=== PATIENT | male | born 1955 | race Caucasian/White ===

== ENCOUNTER 2021-01-02 06:02 | Outpatient (REF) | payer OTHER, SELFPAY ==
[2021-01-02 11:18] LABS: MANUAL DIFF FLAG NO
[2021-01-02 11:26] LABS: Basophils Absolute Auto 0.1 X10*3/uL (0.0-0.2); Basophils Percent Auto 0.5 % (0-2); Eosinophils Absolute Auto 0.2 X10*3/uL (0.0-0.4); Eosinophils Percent Auto 2.3 % (0-4); Hemoglobin 13.5 g/dl (14.0-18.0); Imm Gran Abs Auto 0.02 X10*3/uL (0.00-0.03); Imm Gran Pct Auto 0.2 % (0.0-0.4); Lymphocytes Absolute Auto 4.7 X10*3/uL (1.2-4.9); Lymphocytes Percent Auto 45.8 % (20-40); Mean Corpuscular HGB Conc 32.9 g/dl (31.0-36.0); Mean Corpuscular Volume 94.3 fL (80-98); Mean Platelet Volume 10.9 fL (9.4-12.4); Monocytes Absolute Auto 0.6 X10*3/uL (0.1-1.2); Monocytes Percent Auto 5.5 % (2-11); Neutrophils Absolute Auto 4.7 X10*3/uL (2.0-8.3); Neutrophils Percent Auto 45.7 % (45-73); Platelet Count 387 X10*3/uL (160-400); Red Blood Count 4.35 X10*6/uL (4.60-5.80); Red Cell Distribution Width 14.4 % (11.0-16.0); White Blood Count 10.2 X10*3/uL (4.8-10.8)
[2021-01-02 11:43] LABS: Alanine Aminotransferase 12 U/L (0-40); Alkaline Phosphatase 71 U/L (39-117); Anion Gap 13 (12-20); Aspartate Amino Transferase 21 U/L (5-37); Bilirubin Total 0.7 mg/dL (0.0-1.0); Blood Urea Nitrogen 15 mg/dL (9-16); Calcium 9.1 mg/dL (8.4-10.2); Carbon Dioxide 26 mmol/L (22-29); Chloride 107 mmol/L (96-108); Cholesterol 205 mg/dL; Estimated Glomerular Filt Rate > 60; Glucose Fasting 89 mg/dL (60-99); HDL Cholesterol 54 mg/dL; LDL Cholesterol Calculated 140 mg/dl; Potassium 4.2 mmol/L (3.3-5.1); Sodium 142 mmol/L (135-145); Total Protein 6.4 g/dL (6.5-8.0); Triglycerides 58 mg/dL
== END 2021-01-02 06:03 | disposition home or self-care (01) ==
LOC: HO.HMGCLDS 06:02
PROVIDERS: PCP Internal Medicine; Visit Provider Internal Medicine
DX: Z00.01 Encounter for general adult medical examination with abnormal findings (principal); D22.9 Melanocytic nevi, unspecified; Z71.6 Tobacco abuse counseling; Z12.11 Encounter for screening for malignant neoplasm of colon
CPT/HCPCS: 36415; 80053; 80061; 85025

== ENCOUNTER 2021-01-24 15:16 | Outpatient (REF) | payer OTHER, SELFPAY ==
--- NOTE | ~2021-01-24 | CT_ITS ---
EXAMINATION: CT CHEST SCREENING CLINICAL INFORMATION: Nicotine dependence. COMPARISON: None. TECHNIQUE: Multidetector volumetric CT imaging of the chest is performed without contrast using low dose technique. Additional 2D coronal and sagittal reformatted images and axial 3D maximum intensity projection (MIP) images are generated on the CT workstation. This CT examination was performed using dose optimization techniques as appropriate, variously including the following: *Automated exposure control *Adjustment of mA and/or kV according to patient size (this includes techniques or standardized protocols for targeted exams where dose is matched to indication/reason for exam; i.e. extremities or head) *Use of iterative reconstruction technique DLP: 48 mGy-cm. FINDINGS: LUNGS: The lungs are hyperinflated with no acute pneumonic process. There is 2 mm punctate calcifications left upper lobe image 170/6. No additional nodules seen. There is bilateral lower lobe, lingula and right middle lobe band-like atelectasis. No mass or ground-glass density seen. MEDIASTINUM: The thyroid lobes are symmetrical and normal. The central trachea and the bronchi are widely patent. There are atherosclerotic changes of the thoracic aorta. No aneurysmal dilatation seen. There is no pericardial effusion. No abnormal-sized mediastinal or hilar lymph nodes noted. PLEURA: There is no pleural effusion, thickening or calcification. AXILLA: No lymphadenopathy. UPPER ABDOMEN: Visualized liver and pancreas appear unremarkable. OSSEOUS STRUCTURES: No lytic or sclerotic process seen. There is moderate ventral spondylosis throughout the dorsal spine. There is loss of T7 vertebral height with endplate Schmorl's node, likely chronic. CT/CT lung screening IMPRESSION: Hyperinflated lungs with 2 mm calcification left lower lobe. Bilateral lower lobe, right middle lobe and lingular atelectasis. Moderate spondylosis throughout mid dorsal spine. Compression fracture deformity T7 vertebra, likely old. ASSESSMENT: Lung-RADS category 2: Benign. RECOMMENDATION: Low dose annual CT chest.
== END 2021-01-24 15:17 | disposition home or self-care (01) ==
LOC: HO.CT 15:16
PROVIDERS: PCP Internal Medicine; Visit Provider Physician Assistant Medical
DX: Z12.2 Encounter for screening for malignant neoplasm of respiratory organs (principal); F17.210 Nicotine dependence, cigarettes, uncomplicated
CPT/HCPCS: 71271

== ENCOUNTER → 2021-03-27 13:45 | Outpatient (BNVA) | payer OTHER, SELFPAY | PROVIDERS: PCP Internal Medicine; Visit Provider Nurse Practitioner ==

== ENCOUNTER 2021-05-20 07:38 | Day surgery (SDC) | payer OTHER, SELFPAY ==
--- NOTE | 2021-05-19 13:22 | HO.ANESPROP2 ---
HPI - Anesthesia Eval Consult details Narrative: 65yo M for Colonoscopy PMFSH Active Problems Active Problems: All Active Problems (Updated 05/13/21 @ 15:27 by Keely Lance RN) Change in mole (Acute) Screening for AAA (abdominal aortic aneurysm) (Acute) Colon cancer screening (Acute) Personal history of nicotine dependence (Acute) Past Medical History Medical History COVID-19 vaccine series completed History of COVID-19 History of melanoma in situ Kidney stones Personal history of nicotine dependence Smoker Family History Family History (Updated 03/27/21 @ 13:58 by ALENA Yusuf) Mother Lung cancer Brother Cancer Father Cerebral hemorrhage Surgical History Surgical History History of radical excision of skin lesion Hx of colonoscopy Hx of nephrolithotomy with removal of calculi Social History Social History Alcohol intake: current Alcohol intake frequency: does not drink Patient Tobacco Use Status: Current everyday Tobacco user Tobacco use type: Cigarette Cigarette Packs Per Day: 1 Cigarettes Per Day: 15 Years Smoked: 52 Smoked in Last 30 Days: Yes Use of substances other than those prescribed or required for medical reasons: Yes Substance Use Frequency: Daily Are you DNR?: No Advance Directives: No Advance Directives Information Provided: Yes 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[employer], 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 Meds Allergies Allergy/AdvReac Type Severity Reaction Status Date / Time No Known Allergies Allergy Verified 05/20/21 08:27 Home Medications Medication Instructions Recorded Confirmed Last Taken Type whovdytdudrl-wzv-snuah acid-vit 1 tab PO BEDTIME 03/27/21 05/13/21 Unknown History K-lycop 400 mcg-20 mcg-370 mcg tablet (Men's 50 Plus Multivitamin) Exam Exam Date and Time: May 19, 2021 1322 Pertinent Lab Results Pertinent Lab Results: Laboratory Tests 01/02/21 01/02/21 06:10 06:10 WBC 10.2 Hgb 13.5 L Hct 41.0 L Plt Count 387 Sodium 142 Potassium 4.2 Chloride 107 Carbon Dioxide 26 BUN 15 Creatinine 0.79 Assessment and Plan Assessment Anesthesia Assessment: Chart Reviewed
[2021-05-20 08:27] VITALS: BP 106/61; PULSE 56; RESP 16; TEMP 36.3; O2SAT 97; BMI 22.0
[2021-05-20] MEDS: Lactated Ringers 1,000 ML 100 ML IVCONT (08:46)
--- NOTE | 2021-05-20 09:04 | MHC.SHP ---
Pre-Procedural Eval Section A Date of Service: 05/20/21 The patient is an INPATIENT: No The History & Physical has been completed within 30 days and I have reviewed it.: No Section B Chief Complaint: screening Details of Present Illness: Colon cancer screening Relevant Family History (Specify if Yes): No Relevant Social History: Tobacco Use Present Medications: see Short Stay Collaborative assessment Medical History: Significant History (History of COVID-19 History of melanoma in situ Personal history of nicotine dependence) History of Previous Operations: Relevant previous surgery/procedure and date(s) (History of radical excision of skin lesion Hx of colonoscopy Hx of nephrolithotomy with removal of calculi) Allergies: Allergies Allergy/AdvReac Type Severity Reaction Status Date / Time No Known Allergies Allergy Verified 05/20/21 08:27 Review of Systems Sugical H&P ROS: Negative: Constitution, Cardiovascular, Respiratory and Gastrointestinal Exam Surgical H&P Exam: Normal: Heart, Normal: Lungs, Normal: Extremities and Normal: Abdomen Plan Diagnosis/Plan: Unchanged I have reviewed the history and physical and performed a pertinent physical examination on my patient. No changes have occurred unless specified.
--- NOTE | 2021-05-20 09:11 | W.PM.OPN ---
Operative Note Operative Note Date of Service: 05/20/21 Narrative: Pre-op diagnosis:?Colon cancer screening Post-op diagnosis:?other (Colon polyps, diverticulosis, hemorrhoids) Procedure:? COLONOSCOPY TILL CECUM WITH BIOPSIES, SNARE POLYPECTOMY, SUBMUCOSAL INJECTION AND HEMOCLIP PLACEMENT Consent: Indications for the procedure and potential complications of bleeding, perforation, reaction to medications and missed diagnosis were discussed with the patient and informed consent was obtained. Instrument: Olympus PCF H 190 L variable stiffness pediatric colonoscope Monitoring: Vital signs and clinical assessment, intermittent blood pressure monitoring, continuous EKG monitoring, Pulse oximetry and Carbon Dioxide monitoring were done throughout the procedure. Colon withdrawl time was 22 minutes. Procedure: The patient was placed in the left lateral decubitis position and pre-procedure medications were administered. After a digital rectal examination of the ano-rectum, the video colonoscope was inserted into the rectum and advanced through the colon to the cecum. The colonoscope was slowly withdrawn in a retrograde panoramic fashion and the colon mucosa was carefully examined including a retroflexed view of the rectum. Findings and interventions are described below. Procedure Difficulty: Without difficulty Findings: Terminal Ileum: Not evaluated Cecum:? A 12-15 mm flat polyp raised with 3 cc of Orise solution and removed with a hot snare. Polypectomy site was closed with a resolution clip. Ascending Colon:? Normal Transverse Colon:? A 10 mm sessile polyp removed with a hot snare Descending Colon:? Moderate diverticulosis Sigmoid Colon:? A 7-8 mm sessile polyp removed with the cold biopsy. Moderate diverticulosis Rectum:? Normal Ano-rectum:? Large internal hemorrhoids Colon preparation:? Good Impression and Post Procedure Diagnosis: Colonoscopy Findings: Three small to medium sized polyps removed Moderate diverticulosis seen in the left colon Large hemorrhoids on retroflexed exam. Plan: Await pathology results Patient has an appointment on 06/02/21 in the GI Clinic with? Hali Mccormick NP. Repeat Colonoscopy interval based on path results - in 3-5 years if polyps are adenomatous and 10 years if polyps are hyperplastic. Above findings were reviewed with the patient and colon polyps and diverticulosis handouts were given in the discharge area Surgeon:?Michelle Lopez MD Anesthesia:?MAC (Antonina Avilez CRNA) Was an Project Systems Engineer used for this Procedure?:?Yes Project Systems Engineer:?Karime Pimentel Estimated blood loss (mL):?0 Pathology:?other ( A. cecal polyp with Orise? B. transverse colon polyp? C. sigmoid polyp) Condition:?stable Disposition:?PACU
[2021-05-20 10:56] VITALS: BP 118/69; PULSE 57; RESP 16; TEMP 36.1; O2SAT 97
[2021-05-20 11:11] VITALS: BP 132/72; PULSE 57; RESP 18; TEMP 36.1; O2SAT 95
== END 2021-05-20 12:06 | disposition home or self-care (01) ==
PROVIDERS: PCP Internal Medicine; Visit Provider Internal Medicine Gastroenterology
PROC: 0DJD8ZZ Inspection of Lower Intestinal Tract, Via Natural or Artificial Opening Endoscopic (ICD-10-PCS; CPT 45378; principal; 2021-05-20 09:20)
DX: Z12.11 Encounter for screening for malignant neoplasm of colon (principal); D12.0 Benign neoplasm of cecum; D12.3 Benign neoplasm of transverse colon; K63.5 Polyp of colon; K57.30 Diverticulosis of large intestine without perforation or abscess without bleeding; K64.8 Other hemorrhoids; Z85.820 Personal history of malignant melanoma of skin; Z87.442 Personal history of urinary calculi; Z86.16 Personal history of COVID-19; F17.210 Nicotine dependence, cigarettes, uncomplicated
CPT/HCPCS: 45385; 45380; 45381; 88305

== ENCOUNTER → 2021-06-20 12:54 | Outpatient (BNVA) | payer OTHER, SELFPAY | PROVIDERS: PCP Internal Medicine; Visit Provider Nurse Practitioner ==

== ENCOUNTER 2023-11-19 13:19 | Outpatient (AMB) | payer MEDICARE, SELFPAY ==
[2023-11-19 13:26] VITALS: BP 124/66; PULSE 80; O2SAT 92; BMI 20.8
--- NOTE | 2023-11-19 13:26 | MHC.PC.OV ---
Vital Signs 11/19/23 13:26 Height 5 ft 8 in Weight 137 lb BMI 20.8 BP 124/66 Blood Pressure Location Lt brachial Position Sitting Pulse 80 Pulse Source Pulse Oximeter Pulse Oximetry (%) 92 Oxygen Delivery Method Room Air Intake Visit Reasons: Letter received from [facility] [place] for low dose screening Allergies No Known Allergies Allergy (Verified 11/19/23 13:27) Medication List - Last Reconciled 11/19/23 by Cata Koo MD [id number] K-lycop 400-20-370 mcg (Men's 50 Plus Multivitamin) 1 tab PO BEDTIME Tobacco use date assessed: 11/19/23 Fall risk assessment: No Falls in past year Last assessed Fall Risk: 11/19/23 Dental Screening Dental Screen Date: 11/19/23 Did you have a dental visit in the last 12 months?: No Did you have a dental problem in the last 6 months where you did not have access to dental care?: No Was dental information given to patient?: No HPI Letter received from [facility] [place] for low dose screening HPI Details Patient is 67-year-old gentleman who insisted that he want to have a physical exam today even though he is booked for 15 minute visit We did the physical exam as per patient's wishes And have a history of 1 pack per day smoking for over 50 years He is due for CT lung screening, order placed In 2020 he had colonoscopy that showed tubular adenoma he is due for repeat colonoscopy, order placed He also have a history of pancreatic cancer and would like to be screened for that I have added amylase level to his labs He is also having weak urine stream however declined to take any medication UA and PSA added Complaining of right lower posterior ribcage pain which happened few days ago and then got better Now feels it every now and then. 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 He had numerous superficial abrasion on his arms, he approve of getting Tdap vaccine today last vaccine was more than 10 years ago However he declined to take any other vaccines like pneumonia vaccine [facility] Medical History COVID-19 vaccine series completed Smoker Kidney stones History of COVID-19 History of melanoma in situ Personal history of nicotine dependence Surgical History Hx of colonoscopy History of radical excision of skin lesion Hx of nephrolithotomy with removal of calculi Family History Mother Lung cancer Brother Cancer Father Cerebral hemorrhage Social History Housing: House Alcohol intake: current Alcohol intake frequency: does not drink Patient Tobacco Use Status: Current everyday Tobacco user Tobacco use type: Cigarette Cigarette Packs Per Day: 1 Cigarettes Per Day: 15 Years Smoked: 52 e-Cigarette/Vaping Use: Never Used Current occupational status: employed 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 How often do you have a drink containing alcohol?: Never 3. How often do you have six or more drinks on one occasion?: Never Total Score: 0 Score Reviewed/Action Taken: Yes Review of Systems Const Denies chills, Denies fever(s) and Denies headache(s) Eyes Denies blurry vision ENT Denies headache(s), Denies nasal discharge, Denies nasal obstruction, Denies odynophagia and Denies sinus pain Card Denies chest pain at rest and Denies chest pain with activity Resp Denies cough and Denies hemoptysis GI Denies diarrhea, Denies odynophagia, Denies vomiting and Denies hematemesis Reports as per HPI Musc Denies abnormal gait Skin/Breast Reports as per HPI Neuro Denies Neuro-related abnormal movements, Denies Abnormal speech present, Denies abnormal gait, Denies headache(s) and Denies Sensory deficit (Neuro) Endo Reports as per HPI Luigi/Lymph Reports as per HPI Aller/Immun Reports as per HPI Physical exam (Primary Care) Vital Signs: Last Vital Signs Pulse 80 11/19/23 13:26 BP 124/66 11/19/23 13:26 Pulse Ox 92 11/19/23 13:26 Oxygen Delivery Method Room Air 11/19/23 13:26 BMI result Body Mass Index 20.8 Tobacco/Smoking Status: Tobacco use Status Tobacco use date assessed 11/19/23 11/19/23 13:27 Patient Tobacco Use Status Current everyday Tobacco 11/19/23 13:27 Tobacco use type Cigarette 11/19/23 13:27 e-Cigarette/Vaping Use Never Used 11/19/23 13:27 Const General: cooperative, comfortable and no acute distress Orientation/consciousness: patient oriented x3 HENMT Head: Yes normocephalic and Yes atraumatic Eyes General: appearance normal, both eyes and all related structures Pupils: Equal, round and reactive pupils present EOM: EOMs intact bilaterally Neck Neck: Yes supple and No lymphadenopathy Thyroid: Thyroid normal Lymphatic: no lymphadenopathy noted Resp Effort & Inspection: normal respiratory effort and able to speak in complete sentences Auscultation: clear to auscultation bilaterally Cardio Heart sounds: S1 normal heart sound present and S2 normal heart sound present GI Palpation (GI): Soft to palpation and nontender Auscultation: normal bowel sounds General: Yes no CVA tenderness Back/Spine/Pelvis Back: no CVA tenderness Back/spine/pelvis image: 1. Tender to pressure Skin General skin exam: elasticity normal and turgor normal Neuro General: patient oriented x3 and gait normal Cranial nerves: Yes Equal, round and reactive pupils present Speech: No Abnormal speech present Sensory Exam: No Sensory deficit (Neuro) Coordination: tandem gait normal and Romberg test negative Extrem General: Yes normal exam except as noted and No edema Immunizations Boostrix Tdap 2.5 Lf unit-8 mcg-5 Lf/0.5 mL intramuscular syringe Performing Provider: Cata Koo MD Performing Location: [facility] [place] [facility] Administered by: Asif Linda CMA on 11/19/23 13:52 Dose Route Admin Location Dispensed Lot Number Expiration Date NDC Inside [employer] 0.5 mL IM Left Deltoid 0.5 mL [id number] 01/05/26 85647-824-26 [employer] VIS Given Date VIS Provided VIS Publication Date 11/19/23 Single Vaccine 21 Eligibility Eligibility Date Funding Source Not [facility] Eligible 11/19/23 Private Assessment and Plan Assessment & Plan (1) Encounter for general adult medical examination with abnormal findings: Code(s): Z00.01 - Encounter for general adult medical examination with abnormal findings (2) Tubular adenoma of colon: Comment: 2020 scope to greater than 10 mm tubular adenomas repeat in 3 years Code(s): D12.6 - Benign neoplasm of colon, unspecified (3) Weak urine stream: Code(s): R39.12 - Poor urinary stream (4) Rib pain on right side: Code(s): R07.81 - Pleurodynia (5) Personal history of nicotine dependence: Comment: (Current smoker, onset 13yo,3/4-1ppd x52yrs, 40pyh) Code(s): Z87.891 - Personal history of nicotine dependence (6) Family history of pancreatic cancer: Code(s): Z80.0 - Family history of malignant neoplasm of digestive organs (7) Excessive anger: Code(s): R45.4 - Irritability and anger Plan Patient is 67-year-old gentleman who insisted that he want to have a physical exam today even though he is booked for 15 minute visit We did the physical exam as per patient's wishes And have a history of 1 pack per day smoking for over 50 years He is due for CT lung screening, order placed In 2020 he had colonoscopy that showed tubular adenoma he is due for repeat colonoscopy, order placed He also have a history of pancreatic cancer and would like to be screened for that I have added amylase level to his labs He is also having weak urine stream however declined to take any medication UA and PSA added Complaining of right lower posterior ribcage pain which happened few days ago and then got better Now feels it every now and then. 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 He had numerous superficial abrasion on his arms, he approve of getting Tdap vaccine today last vaccine was more than 10 years ago However he declined to take any other vaccines like pneumonia vaccine Orders: Orders TSH reflex Free T4 Today Z00.01 - Encounter for general adult medical examination with abnormal findings, Z80.0 - Family history of malignant neoplasm of digestive organs, Z87.891 - Personal history of nicotine dependence Amylase Today Z00.01 - Encounter for general adult medical examination with abnormal findings, Z80.0 - Family history of malignant neoplasm of digestive organs, Z87.891 - Personal history of nicotine dependence UA CC w/rflx Micro + Cult Today R39.12 - Poor urinary stream TDaP Immunization Today Z23 - Encounter for immunization CT lung screening Today F17.210 - Nicotine dependence, cigarettes, uncomplicated XR ribs RT 2V Today R07.81 - Pleurodynia Complete Blood Count Auto Diff Today Z00.01 - Encounter for general adult medical examination with abnormal findings, Z80.0 - Family history of malignant neoplasm of digestive organs, Z87.891 - Personal history of nicotine dependence Comprehensive [place]. Panel Fast Today Z00.01 - Encounter for general adult medical examination with abnormal findings, Z80.0 - Family history of malignant neoplasm of digestive organs, Z87.891 - Personal history of nicotine dependence Lipid Panel Today Z00.01 - Encounter for general adult medical examination with abnormal findings, Z80.0 - Family history of malignant neoplasm of digestive organs, Z87.891 - Personal history of nicotine dependence Vitamin D 25-OH (D2 and D3) Today Z00.01 - Encounter for general adult medical examination with abnormal findings, Z80.0 - Family history of malignant neoplasm of digestive organs, Z87.891 - Personal history of nicotine dependence Vitamin B12 Today Z00.01 - Encounter for general adult medical examination with abnormal findings, Z80.0 - Family history of malignant neoplasm of digestive organs, Z87.891 - Personal history of nicotine dependence Prostate Specific Antigen Today R39.12 - Poor urinary stream Referrals Open Access Screening Colonoscopy Referral D12.6 - Benign neoplasm of colon, unspecified Coding Level of Care Code Est Pt Prev Care >65y(19081) Diagnoses Encounter for general adult medical examination with abnormal findings Z00. Tubular adenoma of colon D12.6 Weak urine stream R39.12 Rib pain on right side R07.81 Personal history of nicotine dependence Z87.891 Family history of pancreatic cancer Z80.0 Excessive anger R45.4
== END 2023-11-19 13:48 | disposition home or self-care (01) ==
PROVIDERS: PCP Internal Medicine; Visit Provider Internal Medicine
DX: R07.81 Pleurodynia (principal); R39.12 Poor urinary stream; D12.6 Benign neoplasm of colon, unspecified; Z23 Encounter for immunization; Z87.891 Personal history of nicotine dependence; Z80.0 Family history of malignant neoplasm of digestive organs; R45.4 Irritability and anger
CPT/HCPCS: 90471; 90715; 99214

== ENCOUNTER 2023-11-22 06:19 | Outpatient (REF) | payer MEDICARE, SELFPAY ==
--- NOTE | ~2023-11-22 | XR_ITS ---
EXAMINATION: XR RIBS, RIGHT, WITH PA CHEST CLINICAL INFORMATION: Pleurodynia COMPARISON: Chest CT from 01/24/2021 TECHNIQUE: 3 views of the right ribs. Also, PA view of the chest. FINDINGS: Lungs are well expanded. Linear opacities of minimal atelectasis or scarring in the right middle lobe and inferior ligula. No airspace disease. No pleural effusion or pneumothorax. Cardiac silhouette is normal in size. There is atherosclerotic calcification of the aortic arch. Bones are diffusely osteopenic. The right-sided ribs have an intact appearance. No evidence of an acute, displaced right rib fracture. No focal lytic or blastic lesion. Multilevel osteophyte formation of the degenerated spine. Chronic moderate height loss of the T7 vertebral body. XR/XR ribs RT min 3V w CXR1V IMPRESSION: * No acute pulmonary disease. * Bones are diffusely osteopenic. * No radiographic evidence of an acute rib fracture or other source of pain.
[2023-11-22 10:29] LABS: Appearance Urine Clear; Color Urine Dark Yellow; Glucose Urine UA Negative (Negative); Leukocyte Esterase Urine Negative (Negative); Nitrite Urine Negative (Negative); PH 5.5 (5.0-9.0); Specific Gravity - Urine 1.025 (1.005-1.025); UMIC TRIGGER UACC YES; Urine Blood Trace (Negative); Urine Ketones Negative (Negative); Urine Protein Trace mg/dL (Neg-Trace)
[2023-11-22 10:32] LABS: MANUAL DIFF FLAG NO
[2023-11-22 10:33] LABS: Bacteria Urine None Seen (None Seen); Hyaline Casts Urine 0-2 /LPF (0-2); RBC Urine 0-2 /HPF (0-2); Squamous Epithelial Cell Urine 0-2 /HPF (0-2); WBC Urine 0-5 /HPF (0-5)
[2023-11-22 10:46] LABS: Basophils Absolute Auto 0.1 X10*3/uL (0.0-0.2); Basophils Percent Auto 0.7 % (0-2); Eosinophils Absolute Auto 0.2 X10*3/uL (0.0-0.4); Eosinophils Percent Auto 2.3 % (0-4); Hematocrit 40.8 % (42.0-52.0); Hemoglobin 13.7 g/dl (14.0-18.0); Imm Gran Abs Auto 0.01 X10*3/uL (0.00-0.03); Imm Gran Pct Auto 0.1 % (0.0-0.4); Lymphocytes Absolute Auto 2.9 X10*3/uL (1.2-4.9); Lymphocytes Percent Auto 33.2 % (20-40); Mean Corpuscular HGB Conc 33.6 g/dl (31.0-36.0); Mean Corpuscular Hemoglobin 32.1 pg (27.0-33.0); Mean Corpuscular Volume 95.6 fL (80.0-98.0); Mean Platelet Volume 11.3 fL (9.4-12.4); Monocytes Absolute Auto 0.6 X10*3/uL (0.1-1.2); Monocytes Percent Auto 6.5 % (2-11); Neutrophils Absolute Auto 4.9 x10*3/uL (2.0-8.3); Neutrophils Percent Auto 57.2 % (45-73); Platelet Count 352 X10*3/uL (160-400); Red Blood Count 4.27 X10*6/uL (4.60-5.80); Red Cell Distribution Width 14.6 % (11.0-16.0); White Blood Count 8.6 X10*3/uL (4.8-10.8)
[2023-11-22 11:13] LABS: Alanine Aminotransferase 15 U/L (0-40); Albumin Level 3.8 g/dL (3.5-5.0); Alkaline Phosphatase 65 U/L (39-117); Amylase 64 U/L (28-100); Anion Gap 14 (12-20); Aspartate Amino Transferase 21 U/L (5-37); Bilirubin Total 0.5 mg/dL (0.0-1.0); Blood Urea Nitrogen 12 mg/dL (9-16); Carbon Dioxide 23 mmol/L (22-29); Chloride 107 mmol/L (96-108); Cholesterol 176 mg/dL (<200); Estimated Glomerular Filt Rate > 60; Glucose Fasting 100 mg/dL (60-99); HDL Cholesterol 56 mg/dL (>40); LDL Cholesterol Calculated 107 mg/dL (<100); Potassium 4.2 mmol/L (3.3-5.1); Sodium 140 mmol/L (135-145); Total Protein 6.7 g/dL (6.5-8.0); Triglycerides 66 mg/dL (<150)
[2023-11-22 11:18] LABS: Prostate Specific Antigen 1.22 ng/mL (<0.05-4.0); Vitamin B12 662 pg/mL (200-900)
[2023-11-29 15:48] LABS: Vitamin D 25-OH, D2 <4 ng/mL; Vitamin D 25-OH, D3 45 ng/mL; Vitamin D 25-OH, Total 45 ng/mL (30-100)
== END 2023-11-22 06:20 | disposition home or self-care (01) ==
LOC: HO.HMGCX 06:19
PROVIDERS: PCP Internal Medicine; Visit Provider Internal Medicine
DX: Z00.01 Encounter for general adult medical examination with abnormal findings (principal); Z87.891 Personal history of nicotine dependence; Z80.0 Family history of malignant neoplasm of digestive organs; Z12.5 Encounter for screening for malignant neoplasm of prostate; R39.12 Poor urinary stream
CPT/HCPCS: 36415; 71101; 80053; 80061; 81001; 82150; 82306; 82607; 84153; 84443; 85025

== ENCOUNTER 2023-12-06 10:47 | Outpatient (REF) | payer MEDICARE, SELFPAY ==
[2023-12-06 13:26] LABS: Appearance Urine Clear; Color Urine Dark Yellow; Glucose Urine UA Negative (Negative); Leukocyte Esterase Urine Negative (Negative); Nitrite Urine Negative (Negative); Specific Gravity - Urine 1.025 (1.005-1.025); Urine Blood Negative (Negative); Urine Ketones Trace mg/dL (Negative); Urine Protein Trace mg/dL (Neg-Trace)
== END 2023-12-06 10:48 | disposition home or self-care (01) ==
LOC: HO.HMGCLDS 10:47
PROVIDERS: PCP Internal Medicine; Visit Provider Internal Medicine
DX: R31.9 Hematuria, unspecified (principal)
CPT/HCPCS: 81003

== ENCOUNTER 2024-04-20 07:20 | Outpatient (REF) | payer MEDICARE, SELFPAY ==
--- NOTE | ~2024-04-20 | CT_ITS ---
EXAMINATION: CT LOW-DOSE SCREENING CHEST WITHOUT CONTRAST CLINICAL INFORMATION: Nicotine dependence, cigarettes, uncomplicated. The patient is a current smoker with a 52 pack-year history of smoking. COMPARISON: X-ray chest November 22, [address] chest January 24, 2021. TECHNIQUE: Multidetector volumetric CT imaging of the chest is performed on a Siemens SOMATOM Definition scanner without contrast using low dose technique. Additional 2D coronal and sagittal reformatted images and axial 3D maximum intensity projection (MIP) images are generated on the CT workstation. This CT examination was performed using dose optimization techniques as appropriate, variously including the following: *Automated exposure control *Adjustment of mA and/or kV according to patient size (this includes techniques or standardized protocols for targeted exams where dose is matched to indication/reason for exam; i.e. extremities or head) *Use of iterative reconstruction technique TOTAL EXAM DLP: 39 mGy-cm. CTDIvol: 1.04 mGy. FINDINGS: PULMONARY NODULES: No suspicious pulmonary nodules. A few scattered punctate micronodules. LUNGS: Moderate emphysema. Mild bronchial wall thickening. Atelectasis in the bilateral lower lung crabtree. No consolidation. MEDIASTINUM: Subcentimeter mediastinal lymph nodes. CORONARY ARTERY CALCIFICATION: Moderate coronary artery calcification. THYROID GLAND: Unremarkable to the extent seen. CARDIOVASCULAR STRUCTURES: Normal heart size, no pericardial effusion. Ascending thoracic aorta is upper limits of normal in size measuring 3.9 cm CHEST WALL/AXILLA: Unremarkable. UPPER ABDOMEN: Cyst in the left lobe of the liver, additional subcentimeter hypodensities are too small to characterize but likely represent small cysts. OSSEOUS STRUCTURES: Moderate degenerative changes in the spine. There is a chronic T7 compression deformity. CT/CT lung screening IMPRESSION: 1. Moderate emphysema. No suspicious pulmonary nodules. Moderate coronary artery calcifications. ASSESSMENT: 1. Lung-RADS Category 2: Benign appearance or behavior of nodules. 2. Lung-RADS Category S: Negative. There are no clinically significant or potentially clinically significant findings not related to the lungs requiring urgent additional evaluation. RECOMMENDATION: Continued routine annual low-dose CT lung screening in 1 year is recommended. An order for CT CHEST LOW DOSE CANCER SCREENING ([id number]) can be placed. Electronically signed by: Iain Walters MD 04/24/2024 03:53 PM EDT
== END 2024-04-20 07:21 | disposition home or self-care (01) ==
LOC: HO.CT 07:20
PROVIDERS: PCP Internal Medicine; Visit Provider Physician Assistant Medical
DX: Z12.2 Encounter for screening for malignant neoplasm of respiratory organs (principal); F17.210 Nicotine dependence, cigarettes, uncomplicated
CPT/HCPCS: 71271

== ENCOUNTER 2024-05-25 09:21 | Outpatient (AMB) | payer MEDICARE, SELFPAY ==
--- NOTE | 2024-05-25 10:01 | MHC.OFFWIV ---
Intake Vital Signs 05/25/24 10:06 Weight 134 lb BP 104/66 Blood Pressure Location Rt brachial Position Sitting Pulse 61 Pulse Source Pulse Oximeter Pulse Oximetry (%) 98 Oxygen Delivery Method Room Air Intake Visit Reasons: EP RT knee swelling Intake Note: Patient here for right knee pain and swelling that started today. Patient Tobacco Use Status: Current everyday Tobacco user Allergies No Known Allergies Allergy (Verified 05/25/24 10:07) Do you need a note to return to daycare/school/sports/work: No HPI HPI Comments History of Present Illness Details Patient is a 68-year-old male complaining of right knee pain for 1 day. He tells me he was just admitted to the hospital 3 days ago and discharged 2 days ago, he was treated for diverticulitis and is taking Augmentin. He tells me he has been walking 30 minutes per day like he normally does every day except for Wednesday. He states he woke up this morning and his knee felt very stiff and he took a hot shower and he was able to straighten it but it is painful behind his right knee. Tells me he has ever had this kind of pain before. He denies injury. He denies a recent tick bite or fevers. [facility] Medical History (Updated 05/25/24 @ 10:32 by Irena Cespedes PA-C) Nicotine dependence, cigarettes, uncomplicated COVID-19 vaccine series completed Smoker Kidney stones History of COVID-19 History of melanoma in situ Surgical History Hx of colonoscopy History of radical excision of skin lesion Hx of nephrolithotomy with removal of calculi Family History Mother Lung cancer Brother Cancer Father Cerebral hemorrhage Social History Housing: House Alcohol intake: current Alcohol intake frequency: does not drink Patient Tobacco Use Status: Current everyday Tobacco user Tobacco use type: Cigarette Cigarette Packs Per Day: 1 Cigarettes Per Day: 15 Years Smoked: 52 e-Cigarette/Vaping Use: Never Used Current occupational status: employed 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[employer], 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 Cognitive needs: No Hearing needs: No Vision needs: Yes Review of Systems Const All systems reviewed & are unremarkable except as noted in HPI and below Physical Exam Vital Signs: Last Vital Signs Pulse 61 05/25/24 10:06 BP 104/66 05/25/24 10:06 Pulse Ox 98 05/25/24 10:06 Oxygen Delivery Method Room Air 05/25/24 10:06 Const General: cooperative, healthy appearing, comfortable and no acute distress Orientation/consciousness: patient oriented x3 Limitations: no limitations HEENT Head: Yes normal to inspection Resp Effort & Inspection: normal respiratory effort and able to speak in complete sentences Neuro General: patient oriented x3 Extrem Left lower extremity: knee Details: tenderness (posterior knee), swelling Location: of the patella, normal ROM (with pain) and knee ligament exam normal; no abrasions, no lacerations, no ecchymosis, no crepitus, no deformity and no unusual warmth and lower leg Details: normal to inspection; no erythema, no tenderness, no localized swelling, no abrasions, no lacerations, no ecchymosis and no unusual warmth Assessment & Plan Assessment & Plan (1) Cutler's cyst of knee: Code(s): M71.20 - Synovial cyst of popliteal space [Cutler], unspecified knee Plan: Likely a Cutler's cyst, wrapped knee with Lv wrap recommended he use a leave twice a day for the next few days and apply ice to the back of the knee as well as resting it. Did consider DVT but patient has no tenderness to his calf, no swelling in the calf and he was only in the hospital for 24 hours and has been active every day, walking 30 minutes. Plan see above Coding Level of Care Code Est Pt Level 3 (07070) Diagnoses Cutler's cyst of knee M71.20
[2024-05-25 10:06] VITALS: BP 104/66; PULSE 61; O2SAT 98
== END 2024-05-25 10:48 | disposition home or self-care (01) ==
PROVIDERS: PCP Internal Medicine; Visit Provider Physician Assistant
DX: M71.20 Synovial cyst of popliteal space [Baker], unspecified knee (principal)

== ENCOUNTER → 2024-05-25 09:21 | Outpatient (BNVA) | payer MEDICARE, SELFPAY | PROVIDERS: PCP Internal Medicine; Visit Provider Physician Assistant | DX: M71.20 Synovial cyst of popliteal space [Baker], unspecified knee (principal) | CPT/HCPCS: 99212 ==

== ENCOUNTER 2024-09-08 08:15 | Day surgery (SDC) | payer MEDICARE, SELFPAY ==
[2024-09-06 14:21] VITALS: BMI 20.8
[2024-09-08 08:57] VITALS: BMI 20.7
[2024-09-08 09:26] VITALS: BP 111/63; PULSE 56; RESP 16; TEMP 36.2; O2SAT 96
[2024-09-08] MEDS: Lactated Ringers 1,000 ML 80 ML IVCONT (09:27)
--- NOTE | 2024-09-08 10:20 | HO.ANESPROP2 ---
HPI - Anesthesia Eval Consult details Narrative: 68 yo male patient for Colonoscopy PMFSH Active Problems Active Problems: All Active Problems (Updated 09/08/24 @ 08:54 by Puneet Tavares RN) Cutler's cyst of knee (Acute) Blood in urine (Acute) Excessive anger (Acute) Weak urine stream (Acute) Family history of pancreatic cancer (Acute) Rib pain on right side (Acute) Tubular adenoma of colon (Acute) Colon cancer screening (Acute) Screening for AAA (abdominal aortic aneurysm) (Acute) Change in mole (Acute) Nicotine dependence, cigarettes, uncomplicated (Acute)- Last cigarette this morning Marijuana- daily. Last used a few hours ago Denies JEANE Past Medical History Medical History Diverticulitis Nicotine dependence, cigarettes, uncomplicated Kidney stones History of melanoma in situ Family History Family History Mother Lung cancer Brother Cancer Father Cerebral hemorrhage Family history of problems with anesthesia: No Surgical History Surgical History Hx of colonoscopy History of radical excision of skin lesion Hx of nephrolithotomy with removal of calculi History of Problems with Anesthesia: No Social History Social History Housing: House Alcohol intake: current Alcohol intake frequency: does not drink Patient Tobacco Use Status: Current everyday Tobacco user Tobacco use type: Cigarette Cigarette Packs Per Day: 1 Cigarettes Per Day: 20.0 Years Smoked: 52 e-Cigarette/Vaping Use: Never Used Second Hand Smoke Exposure: No Use of substances other than those prescribed or required for medical reasons: Yes Substance Use Frequency: Daily Have you been hit, kicked, punched, or otherwise hurt by someone within the past year? 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 Cognitive needs: No Hearing needs: No Vision needs: Yes Meds Allergies Allergy/AdvReac Type Severity Reaction Status Date / Time No Known Allergies Allergy Verified 05/25/24 10:07 Active Medications: Current Medications Lactated Ringer's (Lr) 1,000 mls @ 80 mls/hr IVCONT .[id number] [place] Last Admin: 09/08/24 09:27 Dose: 80 mls/hr Home Medications ?Medication ?Instructions ?Recorded ?Confirmed ?Last Taken ?Type jawtfrdxgzok-tei-szkat acid-vit 1 tab PO BEDTIME 03/27/21 09/08/24 09/06/24 History K-lycop 400 mcg-20 mcg-370 mcg tablet (Men's 50 Plus Multivitamin) Exam Height,Weight and Vital Signs: Height 5 ft 8 in Weight 61.9 kg Last Vital Signs Temp 97.2 F 09/08/24 09:26 Pulse 56 09/08/24 09:26 Resp 16 09/08/24 09:26 BP 111/63 09/08/24 09:26 Pulse Ox 96 09/08/24 09:26 O2 Del Method Room Air 09/08/24 09:26 Airway Mallampati Class: III TM Dist: >3cm Neck ROM: Full Denture: Upper and Lower Loose/Missing/Broken Teeth: Yes Heart: RRR Lungs: CTAB Assessment and Plan Assessment Anesthesia Assessment: Anesthesia Plan Discussed and Chart Reviewed Final Anesthetic Review Family History of Problems with Anesthesia: No History of Problems with Anesthesia: No NPO: Yes ASA Class: III Final Preanesthetic Review: No Changes in Pt Med Stat, Meds/Allgs Chart Reviewed, Consent Obtained/Reviewed and Anes Risks/Benef Reviewed Patient Risk: Intermediate Procedure Risk: Low Assessment/Block/Sedation in SS: Assess/Block/Sedation-SS Anesthetic Plan Anesthetic Plan: TIVA Disposition: Standard PACU
--- NOTE | 2024-09-08 10:25 | MHC.SHP ---
Pre-Procedural Eval Section A - 24 Hr Update-Section A only Date of Service: 09/08/24 The patient is an INPATIENT: No The patient has been examined within 24 hours of the surgical procedure. The History & Physical has been completed within 30 days and I have reviewed it.: No Section B - Complete if H&P > 30 days Chief Complaint: Surveillance for colon polyps Relevant Family History (Specify if Yes): No Relevant Social History: Tobacco Use Present Medications: see Short Stay Collaborative assessment Medical History: Significant History (History of COVID-19 History of melanoma in situ Kidney stones Personal history of nicotine dependence Smoker) History of Previous Operations: Relevant previous surgery/procedure and date(s) (History of radical excision of skin lesion Hx of colonoscopy Hx of nephrolithotomy with removal of calculi) Allergies: Allergies Allergy/AdvReac Type Severity Reaction Status Date / Time No Known Allergies Allergy Verified 05/25/24 10:07 Review of Systems Sugical H&P ROS: Negative: Constitution, Cardiovascular, Respiratory and Gastrointestinal Exam Surgical H&P Exam: Normal: Heart, Normal: Lungs, Normal: Extremities and Normal: Abdomen Plan Diagnosis/Plan: Unchanged I have reviewed the history and physical and performed a pertinent physical examination on my patient. No changes have occurred unless specified. Time Spent With Patient Time: Total time managing care of this patient today ____ minutes.
[2024-09-08] MEDS: Albuterol Sulfate (0.083%) 2.5 MG/3 ML VIAL.NEB INHALE (10:41)
--- NOTE | 2024-09-08 11:40 | HO.OPN-COLON ---
Colonoscopy Operative Note Operative Note Date of Service: 09/08/24 Narrative: COLONOSCOPY TILL CECUM WITH SNARE POLYPECTOMY Pre-op diagnosis: Surveillance for colon polyps. Post-op diagnosis:? Colon polyps, Diverticulosis, hemorrhoids Endoscopist:? Michelle Lopez MD Anesthesia:?MAC Consent: Indications for the procedure and potential complications of bleeding, perforation, reaction to medications and missed diagnosis were discussed with the patient and informed consent was obtained. Instrument: Olympus CF H 190 L variable stiffness adult colonoscope Monitoring: Vital signs and clinical assessment, intermittent blood pressure monitoring, continuous EKG monitoring, Pulse oximetry and Carbon Dioxide monitoring were done throughout the procedure. Please see anesthesia flowsheet. Colon withdrawl time was 30 minutes. Procedure: The patient was placed in the left lateral decubitis position and pre-procedure medications were administered. After a digital rectal examination of the ano-rectum, the video colonoscope was inserted into the rectum and advanced through the colon to the cecum. The colonoscope was slowly withdrawn in a retrograde panoramic fashion and the colon mucosa was carefully examined including a retroflexed view of the rectum. Findings and interventions are described below. Procedure Difficulty: There was a narrowing with spasm at 30 cms which was navigated with difficulty. Pt was placed in the supine position to advance the scope through the sigmoid colon. Findings: Terminal Ileum: Not evaluated Cecum: A 7-8 mm sessile polyp removed with a hot snare Ascending Colon: Moderate diverticulosis throughout the entire colon Transverse Colon: A 9-10 mm sessile polyp - Removed with a hot snare Moderate diverticulosis throughout the entire colon Descending Colon: Moderate diverticulosis throughout the entire colon Sigmoid Colon: A 7-8 mm sessile polyp - removed with a hot snare Severe diverticulosis with luminal narrowing Rectum: Normal Ano-rectum: Large non-bleeding internal hemorrhoids Colon preparation: Good after copious irrigation. [place] Bowel Preparation Scale Right colon; 2 Transverse colon: 2 Left colon; 2 (0 = Unprepared colon segment with mucosa not seen due to solid stool that cannot be cleared. 1 = Portion of mucosa of the colon segment seen, but other areas of the colon segment not well seen due to staining, residual stool and/or opaque liquid. 2 = Minor amount of residual staining, small fragments of stool and/or opaque liquid, but mucosa of colon segment seen well. 3 = Entire mucosa of colon segment seen well with no residual staining, small fragments of stool or opaque liquid) Impression and Post Procedure Diagnosis: Colonoscopy Findings: Three small to medium sized polyps were removed Moderate to severe diverticulosis seen in the entire colon Large hemorrhoids on retroflexed exam. Plan: Pt has a FU appointment on 09/22/24 with Hali Mccormick NP. Repeat Colonoscopy in 3-5 years if polyps are adenomatous and 10 year if polyps are hyperplastic. Above findings were reviewed with the patient and relevant handouts were given and the discharge area. BIOPSIES SHOWED: A. Cecum, polypectomy: Tubular adenoma; negative for high-grade dysplasia or carcinoma. B. Colon, transverse, polypectomy: Fragments of tubular adenoma; negative for high-grade dysplasia or carcinoma. C. Colon, sigmoid, polypectomy: Tubular adenoma; negative for high-grade dysplasia or carcinoma Letter sent advising repeat colonoscopy in 3 years. Patient was placed on the colonoscopy recall list
[2024-09-08 11:47] VITALS: BP 125/66; PULSE 61; RESP 18; TEMP 36.3; O2SAT 96
[2024-09-08 12:02] VITALS: BP 123/72; PULSE 65; RESP 16; TEMP 36.4; O2SAT 97
== END 2024-09-08 12:45 | disposition home or self-care (01) ==
PROVIDERS: PCP Internal Medicine; Visit Provider Internal Medicine Gastroenterology
PROC: 0DJD8ZZ Inspection of Lower Intestinal Tract, Via Natural or Artificial Opening Endoscopic (ICD-10-PCS; CPT 45378; principal; 2024-09-08 11:20)
DX: Z12.11 Encounter for screening for malignant neoplasm of colon (principal); Z86.0101 Personal history of adenomatous and serrated colon polyps; D12.0 Benign neoplasm of cecum; D12.3 Benign neoplasm of transverse colon; D12.5 Benign neoplasm of sigmoid colon; K57.30 Diverticulosis of large intestine without perforation or abscess without bleeding; K64.8 Other hemorrhoids; Z79.899 Other long term (current) drug therapy; Z87.442 Personal history of urinary calculi; Z86.006 Personal history of melanoma in-situ; F17.210 Nicotine dependence, cigarettes, uncomplicated
CPT/HCPCS: 45385; 88305; J1596; J2003; J2704

== ENCOUNTER → 2024-09-08 08:15 | Outpatient (BNV) | payer MEDICARE, SELFPAY | PROVIDERS: PCP Internal Medicine; Visit Provider Internal Medicine Gastroenterology | DX: Z12.11 Encounter for screening for malignant neoplasm of colon (principal); Z86.0100 Personal history of colon polyps, unspecified; D12.0 Benign neoplasm of cecum; K57.90 Diverticulosis of intestine, part unspecified, without perforation or abscess without bleeding | CPT/HCPCS: 45385 ==

== ENCOUNTER 2025-03-05 08:01 | Outpatient (AMB) | payer MEDICARE, SELFPAY ==
--- OUTSIDE RECORDS SUMMARY | 2025-03-05 08:03 | XMS_ITS | Clinical Summary ---
Author Organization [facility] Address [address] [address] Phone Care Team Providers Care Remote Sensing Analyst Name Role Phone Cata Koo MD Primary Care Provider Allergies No known active allergies Medications No known medications Active Problems No known active problems Social History Tobacco Use Types Packs/Day Years Used Date Smoking Tobacco: Every Day Cigarettes 1 56.6 Started: 1968 Smokeless Tobacco: Never Education Answer Date Recorded Are you interested in more education? Not on amarilis e 11/13/2022 Are you concerned about learning? Not on file 11/13/2022 No 11/13/2022 No 11/13/2022 Digital Access Answer Date Recorded No 12/12/2022 No 12/12/2022 No 12/12/2022 Reliable internet access at home? Not on file 12/12/2022 Device with a working camera? Not on file Sex and Gender Information Value Date Recorded Sex Assigned at Not on file Legal Sex Male 2:40 PM EDT Gender Identity Not on file Sexual Orientation Not on file Last Filed Vital Signs Vital Sign Reading Time Taken Comments Blood Pressure 112/68 03/10/2019 9:46 AM EDT Pulse 71 04/05/2019 8:58 AM EDT Temperature 36.5 C (97.7 F) 04/05/2019 8:58 AM EDT Respiratory Rate - - Oxygen Saturation 99% 04/05/2019 8:58 AM EDT Inhaled Oxygen Concentration - - Weight 66.2 kg (146 lb) 04/05/2019 8:58 AM EDT Height 175.3 cm (5' 9 ) 04/05/2019 8:58 AM EDT Body Mass Index 21.56 04/05/2019 8:58 AM EDT Plan of Treatment Health Maintenance Due Date Last Done Comments LIPID PANEL 1955 DEPRESSION SCREENING 1967 SMOKING Hx and SMOKELESS TOBACCO SCREENING 12/22/1968 HEPATITIS C SCREENING 12/22/1973 PNEUMOCOCCAL VACCINES (50+ years) (1 of 2 - PCV) 12/22/1974 COLOGUARD 12/22/2000 COLONOSCOPY 12/22/2000 COLORECTAL CANCER SCREENING 12/22/2000 FIT TEST 12/22/2000 FOBT 12/22/2000 SIGMOIDOSCOPY 12/22/2000 VIRTUAL COLONOSCOPY 12/22/2000 ZOSTER VACCINES (1 of 2) 12/22/2005 Adult Td,Tdap Booster 07/19/2019 07/19/2009 , 07/19/2003 ABDOMINAL AORTIC ANEURYSM (AAA) SCREENING 12/22/2020 COVID-19 VACCINE (2 - 2023-2 5 season) 2024 10/20/2020 RSV VACCINE (1 - 1-dose 75+ series) 12/22/2030 HEPATITIS A VACCINES Aged Out No long er eligible based on patient's age to complete this topic HIB VACCINES Aged Out No longer eligi ble based on patient's age to complete this topic MENINGOCOCCAL VACCINES (ACWY) Aged Out No longer eligible based on patient's age to complete this topic MENINGOCOCCAL VACCINES (B) Aged Out N o longer eligible based on patient's age to complete this topic Medical Devices Not on [place] [address] [place] [address] PPO EPO [facility] [place] [address] [place] [address] PPO EPO [facility] PPO EPO [facility] [place] [address] [place] [address] PPO EPO [facility] PPO EPO [facility] [place] [address] [facility] PPO EPO Care Teams Remote Sensing Analyst Relationship Specialty Start Date End Date Cata Koo MD [address] [place] [address] PCP - General Internal Medicine 02/27/19 Additional Source Comments The information contained in this document represents components of the legal health record. It is not the complete legal health record.[facility]
--- NOTE | 2025-03-05 08:13 | AM.OFFWIN_ITS ---
Intake Vital Signs 03/05/25 08:14 Weight 135 lb BP 108/60 Blood Pressure Location Lt brachial Position Sitting Pulse 60 Pulse Source Pulse Oximeter Temp 98.0 F Temp Source Oral Pulse Oximetry (%) 95 Oxygen Delivery Method Room Air Intake Visit Reasons: EP-diverticulosis Intake Note: presents with constipation, lack of appetite and fatigue for 2 days Patient Tobacco Use Status: Current everyday Tobacco user Allergies No Known Allergies Allergy (Verified 03/05/25 08:16) Do you need a note to return to daycare/school/sports/work: No HPI HPI Comments History of Present Illness Details History of Present Illness - The patient is a 69-year-old male pres enting with suspected diverticulitis x 4 days. - The patient has a history of diverticu losis and suspects progression to diverticulitis, reporting constipation and a sensation of sitting on a broomstick. - Nausea is present without vomiting, an d the patient recalls a previous similar episode requiring hospitalization. - Laxatives have been ineffective Physical Exam General: Cooperative, healthy appearing, comfortable, no acute distress and well developed Orientation: Patient oriented x3 Limitations: No limitations Head: Normal to inspection Ears: Hearing grossly normal bilaterally Nose: Normal External nose present Face and sinus: Normal facial exam Eyes: Appearance normal, both eyes and all related structures Neck: Normal visual inspection and Yes full ROM Respiratory: Normal respiratory effort and able to speak in complete sentences. GI: soft, TTP LLQ otherwise normal exam Skin: No rashes or lesions noted Neuro: Patient oriented x3 Extremities: Normal to inspection PFSH Medical History (Updated 03/05/25 @ 08:41 by Irena Cespedes PA-C) Tubular adenoma of colon Diverticulitis Nicotine dependence, cigarettes, uncomplicated Kidney stones History of melanoma in situ Surgical History History of colonoscopy History of radical excision of skin lesion Hx of nephrolithotomy with removal of calculi Family History Mother Lung cancer Brother Cancer Father Cerebral hemorrhage Social History Housing: House Alcohol intake: current Alcohol intake frequency: does not drink Patient Tobacco Use Status: Current everyday Tobacco user Tobacco use type: Cigarette Cigarette Packs Per Day: 1 Cigarettes Per Day: 20.0 Years Smoked: 52 e-Cigarette/Vaping Use: Never Used Second Hand Smoke Exposure: No Current occupational status: employed 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[employer], 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 Hx of diverticulosis and 4d of constipation. - Start Augmentin, 1 tablet every 12 hours, for suspected diverticulitis. - Use a laxative like Dulcolax if no bowel movement in two to three days. - Monitor for worsening symptoms or fever, and seek emergency care if needed. - Prescription to be sent to [facility] in [place]. Patient was informed and verbally consented to the use of an ambient scribe for clinic note documentation during this visit. Medications: New amoxicillin-pot clavulanate 875-125 mg 1 tab PO Q12H 14 tabs 0RF Coding Level of Care Code Est Pt Level 3 (16418) Diagnoses Diverticulitis K57.92
[2025-03-05 08:14] VITALS: BP 108/60; PULSE 60; TEMP 36.7; O2SAT 95
== END 2025-03-05 08:44 | disposition home or self-care (01) ==
PROVIDERS: PCP Internal Medicine; Visit Provider Physician Assistant
DX: K57.92 Diverticulitis of intestine, part unspecified, without perforation or abscess without bleeding (principal)

== ENCOUNTER → 2025-03-05 08:01 | Outpatient (BNVA) | payer MEDICARE, SELFPAY | PROVIDERS: PCP Internal Medicine; Visit Provider Physician Assistant | DX: K57.92 Diverticulitis of intestine, part unspecified, without perforation or abscess without bleeding (principal) | CPT/HCPCS: 99212 ==

== ENCOUNTER 2025-05-11 14:36 | Outpatient (REF) | payer MEDICARE, SELFPAY ==
--- NOTE | ~2025-05-11 | CT_ITS ---
EXAMINATION: CT LUNG SCREENING HISTORY: F17.210 - Nicotine dependence, cigarettes, uncomplicated TECHNIQUE: Low dose axial images were obtained from the sternal notch to upper abdomen without IV contrast per standard departmental protocol. Sagittal and coronal reformatted images were also obtained and reviewed. One or more of the following techniques was used for dose reduction: Automated exposure control, adjustment of the mA and/or kV according to patient size, use of iterative reconstruction technique. DLP: 43 mGy-cm COMPARISON: There are no prior studies available for comparison. FINDINGS: Lung nodules: Mixed cystic and reticular change versus atypical cyst in the right middle lobe near the major fissure measuring 2 11 x 19 mm axial image 96 series 5. This is stable. Mild biapical pleural and parenchymal scarring. Stable linear scarring or chronic subsegmental atelectasis at the lung bases. Central airways are clear. Emphysema: moderate Coronary Calcification: moderate Aortic calcification: Mild. Thoracic aorta upper normal size. Potentially Significant Incidentals : none Additional Chest Findings: There is no pleural or pericardial effusion. No mediastinal or axillary lymphadenopathy is identified. No chest wall mass. Visualized upper abdomen: Stable low-attenuation liver lesions probably representing cysts. Degenerative changes of the spine. Old moderate T7 vertebral body compression fracture unchanged. CT/CT lung screening IMPRESSION: Emphysema. No suspicious pulmonary nodules are identified. LUNG-RADS ASSESSMENT: Lung-RADS 2: Benign MANAGEMENT: Continue annual screening with LDCT in 12 months Category S: N/A Electronically signed by: Analia Murphy MD 05/11/2025 03:34 PM EDT
--- OUTSIDE RECORDS SUMMARY | 2025-05-11 16:23 | XMS_ITS | Clinical Summary ---
Author Organization [facility] Address [address] [place] [id number] Phone Care Team Providers Care Bath Steward Name Role Phone Cata Koo MD Primary Care Provider [phone] Allergies No known active allergies Medications No known medications Active Problems No known active problems Social History Tobacco Use Types Packs/Day Years Used Date Smoking Tobacco: Every Day Cigarettes 1 56.8 Started: 1968 Smokeless Tobacco: Never Education Answer [...] of 2) 12/22/2005 Adult Td,Tdap Booster 07/19/2019 07/19/2009, 004 ABDOMINAL AORTIC ANEURYSM (AAA) SCREENING 12/22/2020 INFLUENZA VACCINE (#1) 2025 , 06/08/2020, 03/30/2018, Additional history exists COVID-19 VACCINE (2 - 2024- season) 2025 10/20/2020 RSV VACCINE (1 - 1-dose 75+ [...] topic Medical Devices Not on file Insurance [address] [place], [place] [id number] EPO [facility] PPO EPO [facility] PPO [facility]PO [facility] PPO EPO [facility] PPO EPO [facility] PPO EPO [facility] PPO EPO [facility] PPO EPO Care Teams [place] Steward Relationship Specialty Start Date End Date Cata Koo MD [address] [place] [address] PCP - General Internal Medicine 02/27/19 Additional Source Comments The information contained in this document represents components of the legal health record. It is not the complete legal health record.[facility]
== END 2025-05-11 14:37 | disposition home or self-care (01) ==
LOC: HO.CT 14:36
PROVIDERS: PCP Internal Medicine; Visit Provider Physician Assistant Medical
DX: Z12.2 Encounter for screening for malignant neoplasm of respiratory organs (principal); F17.210 Nicotine dependence, cigarettes, uncomplicated
CPT/HCPCS: 71271

== ENCOUNTER → 2025-05-11 14:37 | Outpatient (BNV) | payer MEDICARE, SELFPAY | PROVIDERS: PCP Internal Medicine; Visit Provider Radiology Diagnostic Radiology | DX: F17.210 Nicotine dependence, cigarettes, uncomplicated (principal) | CPT/HCPCS: 71271 ==